=== PATIENT | male | born 1965 | race Caucasian/White ===

== ENCOUNTER 2019-05-03 05:44 | Inpatient (IN) | payer OTHER ==
[2019-05-03] VITALS (24 sets, daily range): BP systolic 114–198; BP diastolic 73–128
[~2019-05-03] VITALS: Ht 185.4 cm; Wt 99.3 kg
--- NOTE | ~2019-05-03 | EKG ---
[place] [address] ELECTROCARDIOGRAM REPORT Name: ALMA ROSA VALDEZ Room: [address] IN [facility].#: [id number] Admission: 05/03/19 Attend Phys: Primitivo Nation MD, F Discharge: Date of : 67 Report #: [id number] THIS REPORT FOR: //name// [facility] Test Date: 2019-05-03 Test Time: 09:47:36 Pat Name: ALMA ROSA VALDEZ Department: Room: Gender: Administrative Services Director: [place] [address] : 1965 Requested By: Toño Cunningham Order Number: [id number] MD: Measurements Intervals [place] Rate: 71 P: 31 GA: 128 QRS: -30 QRSD: 90 T: -40 QT: 401 QTc: 436 Interpretive Statements Sinus rhythm Inferoposterior infarct, recent No previous ECG available for comparison [email or web address] By: 0947 0947 Epiphany Epiphany, /EPI
[2019-05-03] MEDS ORDERED: AMARYL4 MG PO (06:03)
[2019-05-03] MEDS ORDERED: GLUCOPHAGE1000 MG PO (06:03)
[2019-05-03] MEDS ORDERED: ZETIA10 MG PO (06:04)
[2019-05-03 06:12] LABS: ABSOLUTE BASOPHILS 0.1 thou/uL (0.0-0.2); ABSOLUTE EOSINOPHILS 0.4 thou/uL (0.0-0.7); ABSOLUTE LYMPHOCYTES 3.8 thou/uL (0.8-5.3); ABSOLUTE MONOCYTES 0.9 thou/uL (0.0-1.2); ABSOLUTE NEUTROPHILS 3.9 thou/uL (1.6-8.1); BASOPHILS 1.1 %; EOSINOPHILS 4.2 %; HEMOGLOBIN 17.4 gm/dL (14.0-18.0); LYMPHOCYTES 41.9 %; MCH 34.1 pg (26.0-34.0); MCHC 35.4 g/dL (28.0-37.0); MCV 96.2 fL (80.0-100.0); MONOCYTES 9.6 %; MPV 7.6 fl. (7.2-11.1); NUCLEATED RBCS 0 /100WBC; PLATELET COUNT* 251 thou/uL (150-400); POLYS 43.2 %; RDW-CV 13.8 % (10.5-14.5); WBC 9.1 thou/uL (4.0-11.0)
[2019-05-03 06:19] LABS: CALCIUM 8.2 mg/dL (8.5-10.1); POTASSIUM 3.7 mmol/L (3.5-5.1)
[2019-05-03 06:23] LABS: APTT 28.6 Seconds (25.0-31.3); INR 0.9; PROTIME 9.7 Seconds (9.20-11.50)
[2019-05-03 06:31] LABS: CK-MB MASS 4.8 ng/mL (<0.5-3.6); MAGNESIUM 1.6 mg/dL (1.8-2.4); TOTAL BILIRUBIN 0.3 mg/dL (<0.1-1.0); TOTAL PROTEIN 7.1 g/dL (6.4-8.2)
--- NOTE | 2019-05-03 10:53 | CARD ---
[address] [address] CARDIAC CATH REPORT Name: ALMA ROSA VALDEZ Room: [address] IN [facility]#: [id number] Admission: 05/03/19 Attend Phys: Primitivo Nation MD, F Discharge: Date of : 67 Report #: [id number] THIS REPORT FOR: //name// APPROVED REPORT Study performed: 05/03/2019 06:31:26 Patient Details Patient Status: ED Room #: The patient is a 53 year-old male Event Personnel Niyah Pritchard RN Ring Packer, Primitivo Nation Wireline Operator, Tiara Varela RTR Monitor, Roosevelt AshbyIS Scrub, Marcelo Mcqueen RTR Scrub Procedures Performed Art Access - R radial artery Left Heart Cath w/or w/o Coronaries LHC VINAY Place w/wo Plasty Single RCA VINAY Place w/wo Plasty Single CIRC Hemostasis with Hemoband Indication Abnormal ECG, Non-STEMI , Chest pain Risk Factors Dysplipidemia , Diabetes Tobacco History () Admission/Lab Medications/Medications given during procedure Glycoprotein IllbIlla Inhibitors, Heparin Unfract. Procedure Narrative The patient was brought emergently to the Cardiac Catheterization Laboratory and was prepped and draped in a sterile manner. The right wrist was infiltrated with 1% Lidocaine subcutaneous anesthesia. A Slender Glidesheath sheath was inserted into the right radial artery. Coronary angiography was performed using coronary diagnostic catheters. The right coronary system was accessed and visualized with a Diagnostic JR 4 6F catheter. The left coronary system was accessed and visualized with a Diagnostic JL 4 6F catheter. The left ventricle was accessed and visualized with a Diagnostic PIG 6F catheter. Left ventricular/Aortic Valve gradient assessed via catheter pullback. Left ventriculogram was performed in CRANE projection. Closure device was deployed with a 6 Fr Vasc band. The patient tolerated the procedure well and there were [place] [address] CARDIAC CATH REPORT Name: ALMA ROSA VALDEZ Room: [address]#: [id number] Admission: 05/03/19 Attend Phys: Primitivo Nation MD, F Discharge: Date of : 67 Report #: [id number] procedure. There was no hematoma. Intraoperative Conscious Sedation Sedation start time: 07:22 Case end Time: 08:26 Fentanyl 125 mcg Versed 5.0 mg Fluoro Time: 10.8 minutes Dose: DAP 075920 cGycm2 2448 mGy Contrast Type and Amount: Visipaque 225 ml Coronary Angiography The patient's coronary anatomy is co- dominant. Diagnostic Cath Left Main 0% stenosis LAD 30% proximal and 30% mid stenosis Circumflex 100% stenosis with thrombus after the 2nd marginal branch L TIFFANY 70% proximal stenosis noted Right Coronary 50% proximal stenosis, long 80% mid stenosis, and 50% distal stenosis noted RPLV 50% proximal stenosis noted Left Ventriculography The left ventricular ejection fraction is estimated to be 50-55%. Left ventricular wall motion abnormalities are present. There is no mitral insufficiency. mild inferior wall hypokinesis noted Hemodynamics The aortic pressure is 137/85 mmHg with a mean of 105 mmHg. The left ventricular pressure is 138/10 mmHg with a mean of mmHg. The left ventricular end diastolic pressure is 12 mmHg. There was no gradient across the aortic valve upon pullback. Pullback from the left ventricle to the aorta revealed no gradient across the aortic valve. PCI Technique Lesion Anticoagulation was achieved with Heparin. bolus of iv aggrastat given Percutaneous coronary intervention was performed on the mid circumflex artery segment. The lesion stenosis prior to intervention was 100% with JOSE 0 flow. A 6FR XB 3.5 100CM Guide Catheter was used to engage the left ostium. A IG: BMW 190cm Interventional Guidewire was [place] [address] CARDIAC CATH REPORT Name: ALMA ROSA VALDEZ Room: [address] IN [facility]#: [id number] Admission: 05/03/19 Attend Phys: Primitivo Nation MD, F Discharge: Date of : 67 Report #: [id number] BALLOON DILATION A Balloon catheter Trek RX 2.5 X 8 was inserted and inflated up to 8.00atm for 8seconds. Repeat angiography revealed the following post-dilatation results: 60% stenosis. Additional Inflation: 12.00atm for 10seconds. STENT DEPLOYMENT A drug-eluting stent Xience Jocelyn 2.26E58ie was inserted and inflated up to 14.00atm for 15seconds. Repeat angiography revealed the following post-stent deployment results: 0% stenosis. Additional Inflation: 19.00atm for 19seconds. Additional Inflation: 21.00atm for 17seconds. Final angiography reveals 0 % stenosis with JOSE 3 flow. PCI Technique Lesion 2 Percutaneous Coronary Intervention was performed on the mid right coronary artery. Percutaneous coronary intervention was performed on the mid right coronary artery. The lesion stenosis prior to intervention was 80% with JOSE 3 flow. A 6FR JCR 4 100CM Guide Catheter was used to engage the right ostium. A IG: BMW 190cm Interventional Guidewire was used to cross the lesion. Balloon Dilation A Balloon catheter Trek RX 2.5 X 8 was inserted and inflated up to 18.00atm for 11seconds. Repeat angiography revealed the following post-dilatation results: 50% stenosis. Additional Inflation: 20.00atm for 9seconds. Additional Inflation: 20.00atm for 5seconds. Stent Deployment A drug-eluting stent Biotronik Orsiro 4.0 x 40 was inserted and inflated up to 16.00atm for 14seconds. Repeat angiography revealed the following post-stent deployment results: 0% stenosis. Additional Inflation: 20.00atm for 13seconds. Final angiography reveals 0 % stenosis with JOSE 3 flow. Conclusion 1. 100% acute occlusion of the mid circumflex artery 2. 80% long stenosis noted of the mid rca 3. successful placement of 2 drug eluting stents in the mid circumflexa and mid rca 4. LVEF 50-55% Recommendations [address] [address] CARDIAC CATH REPORT Name: ALMA ROSA VALDEZ Room: [address] IN .R.#: [id number] Admission: 05/03/19 Attend Phys: Primitivo Nation MD, F Discharge: Date of : 67 Report #: [id number] Smoking Cessation Cardiac Rehabilitation Referral Medications Administered Clopidogrel <ELECTRONICALLY SIGNED> By: Primitivo Nation MD, FACC 05/03/19 1052 1052 1052Dlakeshia Nation MD, FACC /INF
--- NOTE | 2019-05-03 10:56 | H ---
[address] [address] HISTORY AND PHYSICAL Name: JOSÉ MIGUELALMA ROSA John Room: [address] IN .R.#: [id number] Admission: 05/03/19 Attend Phys: Primitivo Nation MD, F Discharge: Date of : 67 Report #: [id number] THIS REPORT FOR: //name// CC: Fanny Helton Cunningham DATE OF SERVICE: 05/03/2019 HISTORY OF PRESENT ILLNESS: The patient is a 53-year-old single white male who came to the Emergency Room today complaining of chest pain. The patient states he has no previous history of heart disease. He did have a treadmill test in the past that apparently showed no significant coronary artery disease. Recently, however, he has had intermittent burning in his chest. It is not related to exertion or meals. He notes he will vomit and the chest pressure goes away. However, last night, about 3 in the morning, he woke up with a pressure in his chest, went into his left arm. He denied diaphoresis or shortness of breath. He came to the Emergency Room about 3 hours later. He was noted to have an abnormal ECG. I was asked to see him on an emergent basis. At this time, he continues to have the chest pain. He has had no recent fever or blood in stool. Denied any trauma to his chest. He denied any exertional dyspnea, palpitations or syncope. PAST MEDICAL HISTORY: He has had no surgical procedures. He does have a history of diabetes and hypertriglyceridemia. MEDICATIONS: Include metformin, Zetia and Prozac. ALLERGIES: HE HAS AN ALLERGY TO PENICILLIN. FAMILY HISTORY: Negative for heart disease. 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 No alcohol abuse. REVIEW OF SYSTEMS: He has had no history of stroke. He does have a chronic cough. No history of liver disease. He has had a kidney stone. No cancer. No psychiatric illness. No chronic skin condition. PHYSICAL EXAMINATION: GENERAL: Revealed a middle-aged male, appeared in mild distress. VITAL SIGNS: His blood pressure was 170/100, pulse is 80. HEENT: He was anicteric. Conjunctivae are pink. Mucous membranes moist. NECK: Veins are nondistended. Neck supple. CHEST: [place] [address] HISTORY AND PHYSICAL Name: ALMA ROSA VALDEZ Room: [address]#: [id number] Admission: 05/03/19 Attend Phys: Primitivo Nation MD, F Discharge: Date of : 67 Report #: [id number] CARDIOVASCULAR: Regular rate and rhythm. No murmurs. ABDOMEN: Soft. EXTREMITIES: Had no edema. Posterior tibial pulse 2+ bilaterally. SKIN: Cool and dry. NEUROLOGIC: Nonfocal. LYMPH: No adenopathy. MUSCULOSKELETAL: No joint effusion. DIAGNOSTIC DATA: ECG showed a sinus rhythm with ST-segment depression in leads V2 through V4. His chest x-ray showed normal heart size, clear lung barnhart. LABORATORY DATA: Sodium 142, creatinine 1.0, glucose 232. Liver function studies were normal. Troponin was 0.58. Lipid profile is pending. White blood cell count 9.1, hemoglobin 17.4. IMPRESSION AND RECOMMENDATIONS: 1. Acute coronary syndrome. Prolonged chest pain with anterior ST-segment depression noted on ECG, suggest a true posterior myocardial infarction. Recommend urgent cardiac catheterization. 2. Diabetes. 3. Dyslipidemia. The patient is on Zetia. 4. Tobacco abuse. 5. Chronic bronchitis. Total time spent with the patient would be from 7:30 a.m. to 9:00 a.m. <ELECTRONICALLY SIGNED> By: Primitivo Nation MD, FACC 05/03/19 1056 0901 0913Primitivo Nation MD, FACC /nt
[2019-05-03 11:22] LABS: CHOLESTEROL 147 mg/dL (<200); HDL CHOLESTEROL 26 mg/dL (>40); LDL CHOLESTEROL 75 mg/dL (<100); TC:HDL 5.7 Ratio (Not establshd); TRIGLYCERIDE 234 mg/dL (<150); VLDL 47 mg/dL (<40)
[2019-05-03 11:26] LABS: SERUM ASSESSMENT Slight Lipemia
[2019-05-04] VITALS (20 sets, daily range): BP systolic 103–129; BP diastolic 68–89
[2019-05-04 04:45] LABS: HEMATOCRIT 43.8 % (42.0-52.0); MCH 33.6 pg (26.0-34.0); MCHC 34.5 g/dL (28.0-37.0); MCV 97.3 fL (80.0-100.0); MPV 7.8 fl. (7.2-11.1); RBC 4.5 mil/uL (4.50-6.00); RDW-CV 13.7 % (10.5-14.5); WBC 10.5 thou/uL (4.0-11.0)
[2019-05-04 05:03] LABS: HEMOGLOBIN 15.1 gm/dL (14.0-18.0)
[2019-05-04 05:05] LABS: CREATININE 0.9 mg/dL (0.6-1.3); POTASSIUM 4.3 mmol/L (3.5-5.1)
[2019-05-04 05:15] LABS: TROPONIN-I LEVEL 18.07 ng/mL (<0.06)
[2019-05-05] VITALS (20 sets, daily range): BP systolic 82–119; BP diastolic 49–86
[2019-05-05 02:06] LABS: GLYCOHEMOGLOBIN (HGB A1C) 6.5 % (4.8-5.6)
[2019-05-05 04:32] LABS: HEMATOCRIT 41.3 % (42.0-52.0); HEMOGLOBIN 14.6 gm/dL (14.0-18.0); MCHC 35.3 g/dL (28.0-37.0); MCV 96.3 fL (80.0-100.0); MPV 7.8 fl. (7.2-11.1); RBC 4.29 mil/uL (4.50-6.00); RDW-CV 13.2 % (10.5-14.5); WBC 9.8 thou/uL (4.0-11.0)
[2019-05-05 05:07] LABS: ALBUMIN 3.3 g/dL (3.4-5.0); CALCIUM 8.5 mg/dL (8.5-10.1); CREATININE 0.8 mg/dL (0.6-1.3); POTASSIUM 3.9 mmol/L (3.5-5.1); TOTAL BILIRUBIN 0.7 mg/dL (<0.1-1.0)
[2019-05-05 05:13] LABS: TROPONIN-I LEVEL 9.91 ng/mL (<0.06)
--- NOTE | 2019-05-05 10:46 | EKG ---
[place] [address] ELECTROCARDIOGRAM REPORT Name: ALMA ROSA VALDEZ Room: [address] IN [facility].#: [id number] Admission: 05/03/19 Attend Phys: Primitivo Nation MD, F Discharge: Date of : 67 Report #: [id number] THIS REPORT FOR: //name// [facility] ED Test Date: 2019-05-03 Test Time: 05:51:58 Pat Name: ALMA ROSA VALDEZ Department: Room: Gender: Welder Gas Automatic: : 1965 Requested By: Toño Cunningham Order Number: [id number] MD: Slick Lester Measurements Intervals [place] Rate: 87 P: 77 VT: 161 QRS: 0 QRSD: 96 T: 73 QT: 350 QTc: 421 Interpretive Statements Sinus rhythm Posterior infarct, acute (LCx) ST elevation, consider inferior injury Baseline wander in lead(s) II,V1,V2 No previous ECG available for comparison Electronically Signed On 05-05-2019 10:45:58 CINEMA OPERATOR by Slick Lester [email or web address] <ELECTRONICALLY SIGNED> By: Slick Lester MD, FACC 05/05/19 1045 0551 0551 Slick Lester MD, FAC /EPI
--- NOTE | 2019-05-05 10:46 | EKG ---
[place] [address] ELECTROCARDIOGRAM REPORT Name: ALMA ROSA VALDEZ Room: [address] IN [facility].#: [id number] Admission: 05/03/19 Attend Phys: Primitivo Nation MD, F Discharge: Date of : 67 Report #: [id number] THIS REPORT FOR: //name// [facility] ED Test Date: 2019-05-03 Test Time: 05:56:39 Pat Name: ALMA ROSA VALDEZ Department: Room: Gender: Nutrition Services Worker: : 1965 Requested By: Toño Cunningham Order Number: [id number] MD: Slick Lester Measurements Intervals [place] Rate: 81 P: 70 [place]: 147 QRS: 15 QRSD: 86 T: 79 QT: 359 QTc: 417 Interpretive Statements Sinus rhythm Probable left atrial enlargement ST segment depression, consider ischemia No previous ECG available for comparison Electronically Signed On 05-05-2019 10:46:16 EMISSIONS INSPECTOR by Slick Lester [email or web address] <ELECTRONICALLY SIGNED> By: Slick Lester MD, [facility] 05/05/19 1046 0556 0556 Slick Lester MD, FACC /EPI
--- NOTE | 2019-05-05 10:47 | EKG ---
[place] [address] ELECTROCARDIOGRAM REPORT Name: ALMA ROSA VALDEZ Room: [address] ADM IN M.R.#: [id number] Admission: 05/03/19 Attend Phys: Primitivo Nation MD, F Discharge: Date of : 67 Report #: [id number] THIS REPORT FOR: //name// [facility] Test Date: 2019-05-03 Test Time: 09:47:36 Pat Name: ALMA ROSA VALDEZ Department: Room: [address] Gender: Phone Operator: [id number] : 1965 Requested By: Primitivo Nation Order Number: [id number] [place] MD: Slick Lester Measurements Intervals [place] Rate: 71 P: 31 [place]: 128 QRS: -30 QRSD: 90 T: -40 QT: 401 QTc: 436 Interpretive Statements Sinus rhythm Inferoposterior infarct, recent No previous ECG available for comparison Electronically Signed On 05-05-2019 10:46:53 BRUSH HEAD MAKER by Slick Lester [email or web address] <ELECTRONICALLY SIGNED> By: Slick Lester MD, [facility] 05/05/19 1046 D: [id number] 6 Silck Lester MD, FACC /EPI
--- NOTE | 2019-05-05 10:53 | EKG ---
[place] [address] ELECTROCARDIOGRAM REPORT Name: ALMA ROSA VALDEZ Room: [address] ADM IN M.R.#: [id number] Admission: 05/03/19 Attend Phys: Primitivo Nation MD, F Discharge: Date of : 67 Report #: [id number] THIS REPORT FOR: //name// [facility] Test Date: 2019-05-04 Test Time: 06:53:57 Pat Name: ALMA ROSA VALDEZ Department: Room: [address] Gender: M Screening Tech: [facility] : 1965 Requested By: Primitivo Nation Order Number: [id number] [place] MD: Slick Lester Measurements Intervals [place] Rate: 75 P: 48 AL: 124 QRS: -35 QRSD: 90 T: -87 QT: 418 QTc: 467 Interpretive Statements Sinus rhythm Inferior infarct, age indeterminate Lateral leads are also involved Baseline wander in lead(s) V1 No previous ECG available for comparison Electronically Signed On 05-05-2019 10:53:22 PASSENGER ATTENDANT by Slick Lester [email or web address] <ELECTRONICALLY SIGNED> By: Slick Lester MD, [facility] 05/05/19 1053 0653 0653 Slick Lester MD, [facility] /EPI
--- NOTE | 2019-05-05 11:04 | EKG ---
[place] [address] ELECTROCARDIOGRAM REPORT Name: ALMA ROSA VALDEZ Room: [address] ADM IN M.R.#: [id number] Admission: 05/03/19 Attend Phys: Primitivo Nation MD, F Discharge: Date of : 67 Report #: [id number] THIS REPORT FOR: //name// [facility] Test Date: 2019-05-05 Test Time: 07:40:47 Pat Name: ALMA ROSA VALDEZ Department: Room: [address] Gender: M Cattle Tester: RT : 1965 Requested By: Giuseppe Bowen Order Number: [id number] [place] MD: Slick Lester Measurements Intervals [place] Rate: 79 P: 48 ME: 107 QRS: -29 QRSD: 87 T: -84 QT: 397 QTc: 456 Interpretive Statements Sinus rhythm Short ME interval Inferior infarct, age indeterminate No previous ECG available for comparison Electronically Signed On 05-05-2019 11:04:10 TRANSIT SPECIALIST by Slick Lester [email or web address] <ELECTRONICALLY SIGNED> By: Slick Lester MD, [facility] 05/05/19 1104 D: [id number] 9 Slick Lester MD, FACC /EPI
[2019-05-05] MEDS ORDERED: LIPITOR20 MG PO (13:24)
[2019-05-05] MEDS ORDERED: LISINOPRIL2.5 MG PO (13:26)
[2019-05-05] MEDS ORDERED: ASPIR 8181 M1 PO (13:28)
[2019-05-05] MEDS ORDERED: TOPROL XL25 MG PO (13:28)
[2019-05-05] MEDS ORDERED: EFFIENT10 MG PO (13:30)
[2019-05-05] MEDS ORDERED: NITROGLYCERIN0.4 MG SUBLING (13:31)
--- NOTE | 2019-05-05 15:40 | EKG ---
[place] [address] ELECTROCARDIOGRAM REPORT Name: ALMA ROSA VALDEZ Room: [address] IN M.R.#: [id number] Admission: 05/03/19 Attend Phys: Primitivo Nation MD, F Discharge: 05/05/19 Date of : 67 Report #: [id number] THIS REPORT FOR: //name// [facility] Test Date: 2019-05-04 Test Time: 16:56:17 Pat Name: ALMA ROSA VALDEZ Department: Room: [address] Gender: M Middle School Professional: [id number] : 1965 Requested By: Giuseppe Bowen Order Number: [id number] [place] MD: Giuseppe Bowen Measurements Intervals [place] Rate: 73 P: 50 [place]: 124 QRS: -31 QRSD: 100 T: 269 QT: 410 QTc: 452 Interpretive Statements Sinus rhythm Inferior infarct, old Compared to ECG 05/04/2019 06:53:57 No significant changes Electronically Signed On 05-05-2019 15:40:28 INCOME TAX ANALYST by Giuseppe Bowen [email or web address] <ELECTRONICALLY SIGNED> By: Giuseppe Bowen MD, [facility] 05/05/19 1540 1656 1656 Giuseppe Bowen MD, [facility] /EPI
--- NOTE | 2019-05-07 14:08 | CARD ---
[address] [address] CARDIAC CATH REPORT Name: ALMA ROSA VALDEZ Room: [address]#: [id number] Admission: 05/03/19 Attend Phys: Primitivo Nation MD, F Discharge: 05/05/19 Date of : 67 Report #: [id number] THIS REPORT FOR: //name// APPROVED REPORT Study performed: 05/04/2019 13:45:38 Patient Details Patient Status: In-Patient Room #: The patient is a 53 year-old male Event Personnel Giuseppe Bowen Offender Job Retention Specialist, Venus Muhammad RN Human Resources Benefits Administrator, Marcelo Mcqueen RTR Scrub, Roosevelt Ashby EDUCATIONAL PSYCHOLOGIST Monitor, Tiara Varela RTR Monitor Procedures Performed Art Access - R femoral artery ; left heart catheterization with selective coronary arteriography VINAY Place w/wo Plasty Single CIRC VINAY Place w/wo Plasty Single RCA PTCA Single Vessel OM Hemostasis w/ Angioseal Indication Angina post MN Risk Factors Hypercholesterolemia, Tobacco History () Previous Procedures/Diagnoses Previous PCI, Previous MN Admission/Lab Medications/Medications given during procedure Angiomax bolus and infusion Procedure Narrative The patient was brought electively to the Cardiac Catheterization Laboratory and was prepped and draped in a sterile manner. The right femoral was infiltrated with 2% Lidocaine subcutaneous anesthesia. A Ramona 6 Fr sheath was inserted into the right femoral artery. Coronary angiography was performed using coronary diagnostic catheters. The right coronary system was accessed and visualized with a Diagnostic JR 4 6 Fr catheter. The left coronary system was accessed and visualized with a Diagnostic JL 4 6 Fr catheter. The left ventricle was accessed and visualized with a Diagnostic Pig 6 Fr catheter. Left ventricular/Aortic [place] [address] CARDIAC CATH REPORT Name: JOSÉ MIGUELALMA ROSA John Room: [address]#: [id number] Admission: 05/03/19 Attend Phys: Primitivo Nation MD, F Discharge: 05/05/19 Date of : 67 Report #: [id number] catheter pullback. Pre-demployment femoral angiogram was performed . Closure device was deployed with a Fr Angioseal STS 6Fr. The patient tolerated the procedure well and there were no complications associated with the procedure. There was no hematoma. Intraoperative Conscious Sedation Sedation start time: 14:24 Case end Time: 16:08 Fentanyl 75 mcg Versed 3 mg Fluoro Time: 38.6 minutes Dose: DAP [id number] cGycm2 4516 mGy Contrast Type and Amount: Visipaque 400 ml Diagnostic Cath Left Main 0% narrowing LAD 50% mid LAD stenosis Circumflex 50% mid circumflex narrowing with widely patent mid circumflex stent and 90% stenosis distal to a second marginal branch Right Coronary 75% very proximal very proximal right coronary stenosis with local intimal disruption suggested; there is a widely patent proximalmid right coronary stent with 50% tubular distal right coronary narrowing Left Ventriculography Left Ventriculography was not performed. Hemodynamics The aortic pressure is 128/62 mmHg with a mean of 88 mmHg. The left ventricular pressure is 112/7 mmHg with a mean of mmHg. The left ventricular end diastolic pressure is 13 mmHg. PCI Technique Lesion Anticoagulation was achieved with Angiomax Drip. Patient was preloaded with Angiomax IV 15 ml. Percutaneous coronary intervention was performed on the mid circumflex artery segment. The lesion stenosis prior to intervention was 90% with JOSE 3 flow. A 6FR LAUNCHER EBU 4.0 Guide Catheter was used to engage the left ostium. A IG: ProwaterFlex 180CM Interventional Guidewire was used to cross the lesion. BALLOON DILATION A Balloon catheter Trek RX 2.75 X 12 was inserted and inflated up to 14.00atm for 7seconds. [place] [address] CARDIAC CATH REPORT Name: ALMA ROSA VALDEZ Room: [address]#: [id number] Admission: 05/03/19 Attend Phys: Primitivo Nation MD, F Discharge: 05/05/19 Date of : 67 Report #: [id number] STENT DEPLOYMENT A drug-eluting stent Xience Jocelyn 2.17K11wq was inserted and inflated up to 16.00atm for 12seconds. Additional Inflation: 18.00atm for 8seconds. POST STENT DEPLOYMENT BALLOON DILATION A Balloon catheter NC Trek RX 3.0 X 8 was inserted and inflated up to 12.00atm for 8seconds. Additional Inflation: 17.00atm for 9seconds. Additional Inflation: 20.00atm for 8seconds. Trek 2.75 x 8 inserted/inflated for 15 sec @ 10 GALLITO and 17 sec @ 10 GALLITO Final angiography reveals 10 % stenosis with JOSE 3 flow. PCI Technique Lesion 2 Percutaneous Coronary Intervention was performed on the second obtuse marginal branch segment. Patient was preloaded with Angiomax IV 15 ml. The lesion stenosis prior to intervention was 75% with JOSE 3 flow. A 6FR LAUNCHER EBU 4.0 Guide Catheter was used to engage the left ostium. A IG: BMW 190cm Interventional Guidewire was used to cross the lesion. Balloon Dilation A Balloon catheter Trek RX 2.5 X 8 was inserted and inflated up to 12.00atm for 6seconds. Additional Inflation: 14.00atm for 9seconds. Trek RX 2.5 x 8 reinserted/inflated for 7 sec @ 12 GALLITO, 15 sec @ 10 GALLITO, and 18 sec @ 10 GALLITO Final angiography reveals 20 % stenosis with JOSE 3 flow. PCI Technique Lesion 3 Percutaneous Coronary Intervention was performed on the proximal right coronary artery. Patient was preloaded with Angiomax IV 15 ml. The lesion stenosis prior to intervention was 75% with JOSE 3 flow. A 6F JR 4.0 Guide Catheter was used to engage the right ostium. A IG: ProwaterFlex 180CM Interventional Guidewire was used to cross the lesion. Balloon Dilation A Balloon catheter Trek RX 3.5 X 12 was inserted and inflated up to 22.00atm for 13seconds. Additional Inflation: 24.00atm for 10seconds. Stent Deployment A drug-eluting stent Biotronik Orsiro 4.0 x 13 was inserted and inflated up to 10.00atm for 9seconds. Additional Inflation: 12.00atm for 9seconds. Additional Inflation: 12.00atm for 7seconds. [place] [address] CARDIAC CATH REPORT Name: ALMA ROSA VALDEZ Room: [address]#: [id number] Admission: 05/03/19 Attend Phys: Primitivo Nation MD, F Discharge: 05/05/19 Date of : 67 Report #: [id number] Final angiography reveals 0 % stenosis with JOSE 3 flow. Conclusion #1 significant coronary artery disease characterized by the following: A 50% mid LAD narrowing B 50% midcircumflex narrowing with widely patent mid circumflex stent and 90% stenosis of the circumflex distal to the second marginal branch C large dominant right coronary artery with 75% clefted very proximal right coronary stenosis followed by a widely patent stent and 50% tubular distal narrowing of the right coronary artery #3 successful percutaneous coronary intervention with deployment of a drug-eluting stent at site of 90% mid circumflex stenosis with 10% residual narrowing #4 successful percutaneous transluminal coronary angioplasty at the ostium of the second marginal branch with 20% residual narrowing #5 successful percutaneous coronary intervention deployment of drug-eluting stent at the site of 75% clefted very proximal right coronary stenosis with 0% residual narrowing and JOSE-3 flow the distal vessel Recommendations Smoking Cessation Cardiac Risk Reduction Program Aggressive Medical Therapy Medications Administered Aspirin (any) Prasugrel Diagnostic Cath Approved by: Giuseppe Bowen MD Date/Time: 05/07/2019 14:06:26 <ELECTRONICALLY SIGNED> By: Giuseppe Bowen MD, [facility] 05/07/19 1407 1407 1407John Lacey Bowen MD, FACC /INF
--- NOTE | 2019-05-07 15:31 | D ---
[address] [address] DISCHARGE SUMMARY Name: JOSÉ MIGUELALMA ROSA John Room: [address] M.R.#: [id number] Admission: 05/03/19 Attend Phys: Primitivo Nation MD, F Discharge: 05/05/19 Date of : 67 Report #: [id number] THIS REPORT FOR: //name// [facility] DATE OF SERV[facility]: 05/05/2019 FINAL DISCHARGE DIAGNOSES: 1. Acute posterior myocardial infarction. 2. Coronary artery disease. 3. Status post percutaneous coronary intervention of the circumflex, right coronary artery. 4. Diabetes. 5. Hyperlipidemia. 6. Tobacco abuse. PROCEDURES: 05/03/2019 -- left heart catheterization, selective coronary arteriography and percutaneous coronary intervention to the circumflex and right coronary artery in acute setting. 05/04/2019 -- left heart catheterization, selective coronary arteriography and percutaneous coronary intervention to the circumflex beyond the previously deployed stent in the proximal right coronary artery prior to the previously deployed stent. The patient is a very pleasant 53-year-old male who presented with chest pain and true posterior myocardial infarction. He was taken to the catheterization lab emergently and underwent stenting of the mid circumflex and the proximal-mid right coronary artery. He noted some chest discomfort the following day, which was concerning and recatheterization revealed widely patent stents with 90% stenosis just distal to the circumflex stent and an ulcerated stenosis just proximal to the right coronary stent suggesting interval disruption. I deployed one stent distal to the previously deployed circumflex stent dilating the second marginal branch through that stent and stented the proximal right coronary artery with a 4.0 x 13 mm Orsiro stent. There was 0% right coronary narrowings and 10% mid circumflex with 20% second marginal narrowing following final PCI with JOSE 3 flow to all distal circulations. Troponin latasha to peak value of 18.07 and gradually diminished subsequently to that. LABORATORY DATA: On 05/05/2019 revealed sodium 141, potassium 3.9, BUN 13, creatinine 0.8. Hemoglobin 14.6, white blood cell count 9800. Cholesterol 147, triglycerides 234, HDL 26, LDL 75. DISCHARGE MEDICATIONS: The patient was discharged to home on 05/05/2019 on the following medications: Aspirin 81 mg daily, Zetia 10 mg daily, atorvastatin 20 mg daily, glimepiride 4 mg daily, lisinopril 5 mg daily, metformin [address] [place] [address] DISCHARGE SUMMARY Name: ALMA ROSA VALDEZ Room: [address]#: [id number] Admission: 05/03/19 Attend Phys: Primitivo Nation MD, F Discharge: 05/05/19 Date of : 67 Report #: [id number] b.i.d. to be started on 05/06/2019, metoprolol tartrate 12.5 mg b.i.d. and prasugrel 10 mg daily. He is scheduled to see our nurse practitioner in [address] Nation in approximately 6. Therefore, the patient is discharged to home in stable condition on the aforementioned medications with followup as iterated above. <ELECTRONICALLY SIGNED> By: Giuseppe Bowen MD, [facility] 05/07/19 1531 1254 [id number] Bowen MD, FAC /nt
== END 2019-05-05 14:38 | disposition home or self-care (01) | DRG 247 ==
LOC: M.CL 05:44 → M.ERS 05:44 → M.CL 07:19 → M.ICU 08:55
PROVIDERS: Family Medicine; Internal Medicine; ADMIT Internal Medicine Cardiovascular Disease
PROC: B215YZZ Fluoroscopy of Left Heart using Other Contrast (ICD-10-PCS; principal; 2019-05-03)
PROC: 4A023N7 Measurement of Cardiac Sampling and Pressure, Left Heart, Percutaneous Approach (ICD-10-PCS; principal; 2019-05-03)
PROC: 027135Z Dilation of Coronary Artery, Two Arteries with Two Drug-eluting Intraluminal Devices, Percutaneous Approach (ICD-10-PCS; principal; 2019-05-03)
PROC: B211YZZ Fluoroscopy of Multiple Coronary Arteries using Other Contrast (ICD-10-PCS; principal; 2019-05-03)
DX: I21.29 ST elevation (STEMI) myocardial infarction involving other sites (principal); I24.9 Acute ischemic heart disease, unspecified; E11.9 Type 2 diabetes mellitus without complications; I25.110 Atherosclerotic heart disease of native coronary artery with unstable angina pectoris; E78.5 Hyperlipidemia, unspecified; F17.210 Nicotine dependence, cigarettes, uncomplicated; Z79.899 Other long term (current) drug therapy; Z79.84 Long term (current) use of oral hypoglycemic drugs; Z88.0 Allergy status to penicillin; Z71.6 Tobacco abuse counseling

== ENCOUNTER 2019-05-07 02:06 | Emergency (ER) | payer OTHER ==
[~2019-05-07] VITALS: Ht 185.4 cm; Wt 104.3 kg
[~2019-05-07 02:06] MED LIST: AMARYL4 MG PO; ASPIR 8181 M1 PO; EFFIENT10 MG PO; GLUCOPHAGE1000 MG PO; LIPITOR20 MG PO; LISINOPRIL2.5 MG PO; NITROGLYCERIN0.4 MG SUBLING; TOPROL XL25 MG PO; ZETIA10 MG PO
[2019-05-07 02:25] LABS: ABSOLUTE BASOPHILS 0.1 thou/uL (0.0-0.2); ABSOLUTE EOSINOPHILS 0.2 thou/uL (0.0-0.7); ABSOLUTE LYMPHOCYTES 1.8 thou/uL (0.8-5.3); ABSOLUTE NEUTROPHILS 4.8 thou/uL (1.6-8.1); BASOPHILS 1.3 %; EOSINOPHILS 3.1 %; HEMATOCRIT 44.3 % (42.0-52.0); HEMOGLOBIN 15.7 gm/dL (14.0-18.0); LYMPHOCYTES 23.2 %; MCH 34.2 pg (26.0-34.0); MCHC 35.4 g/dL (28.0-37.0); MCV 96.5 fL (80.0-100.0); NUCLEATED RBCS 0 /100WBC; PLATELET COUNT* 227 thou/uL (150-400); POLYS 60.4 %; RBC 4.59 mil/uL (4.50-6.00); RDW-CV 13.5 % (10.5-14.5); WBC 7.9 thou/uL (4.0-11.0)
[2019-05-07 02:30] LABS: CREATININE 1.1 mg/dL (0.6-1.3); POTASSIUM 3.7 mmol/L (3.5-5.1)
[2019-05-07 02:35] LABS: APTT 27.4 Seconds (25.0-31.3); PROTIME 9.9 Seconds (9.20-11.50)
[2019-05-07 02:59] LABS: ALBUMIN 3.9 g/dL (3.4-5.0); TOTAL BILIRUBIN 0.4 mg/dL (<0.1-1.0); TOTAL PROTEIN 7.1 g/dL (6.4-8.2)
[2019-05-07] MEDS ORDERED: CARAFATE 1 GM TA1 GM PO (05:29)
[2019-05-07 05:45] VITALS: BP 103/64
--- NOTE | 2019-05-07 15:58 | EKG ---
[place] [address] ELECTROCARDIOGRAM REPORT Name: VALDEZALMA ROSA MORAN Room: 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 : 1965 Requested By: Kenia Dixon Order Number: [id number] MD: Giuseppe Bowen Measurements Intervals [place] Rate: 85 P: 40 MA: 117 QRS: -30 QRSD: 56 T: QT: 429 QTc: 511 Interpretive Statements Sinus rhythm Borderline short MA interval Left axis deviation Low voltage, precordial leads Abnormal R-wave progression, early transition Prolonged QT interval Compared to ECG 05/05/2019 07:40:47 Left-axis deviation now present Low QRS voltage now present Prolonged QT interval now present Myocardial infarct finding no longer present Electronically Signed On 05-07-2019 15:57:45 SURGICAL FORCEPS FABRICATOR by Giuseppe Bowen [email or web address] <ELECTRONICALLY SIGNED> By: Giuseppe Bowen MD, FACC 05/07/19 1557 0 0 Giuseppe Bowen MD, FAC /EPI
== END 2019-05-07 05:45 | disposition home or self-care (01) ==
LOC: M.ERS 02:06
PROVIDERS: Personal Emergency Response Attendant
DX: I25.10 Atherosclerotic heart disease of native coronary artery without angina pectoris (principal); K21.0 Gastro-esophageal reflux disease with esophagitis; I10 Essential (primary) hypertension; E11.9 Type 2 diabetes mellitus without complications; E78.5 Hyperlipidemia, unspecified; I25.2 Old myocardial infarction; Z88.0 Allergy status to penicillin

== ENCOUNTER → 2020-06-01 | Outpatient (CLI) | payer OTHER ==
[~2020-06-01] MED LIST changes: +CARAFATE 1 GM TA1 GM PO
--- NOTE | 2020-06-02 16:58 | CARDNUC ---
[place] [address] CARDIAC NUCLEAR IMAGING REPORT Name: ALMA ROSA VALDEZ Room: [facility]#: [id number] Admission: 06/01/20 Attend Phys: Genoveva Lim Discharge: Date of : 67 Date of Service: 06/02/20 1658 Report #: [id number] THIS REPORT FOR: cc: Fanny Miller,Fanny Wilson,Slick Baires MD [facility] ~ APPROVED REPORT Imaging Protocol: Rest Tc-99m/Stress Tc-99m 1 day Study performed: 06/01/2020 14:24:41 Indication: HTN, CAD S/P RI/PCI. Patient Location: Out-Patient Stress Tech: Haydee Tavares Stress Nurse: Janiya Perez RN NM Tech:PHILIP Hall Ht: 6 ft 1 in Wt: 238 lbs BSA: 2.32 m2 BMI: 31.39 Medical History Medical History: Angina, CAD s/p RI, CAD s/p stent, COPD, Current Smoker, Diabetic Noninsulin, HTN, Hyperlipidemia, GERD. Medications: ASA 81 MG, ATORVASTATIN, ZETIA, LISINOPRIL, METOPROLOL, NTG, EFFIENT. Allergies: PNC, ADHESIVES. Cardiac Risk Factors: Age, Current Smoker, Diabetes (non-insulin), HTN, Hyperlipidemia, CAD s/p RI/PCI. Previous Cardiac Procedures: Myocardial infarction, PCI. Pretest Chest Pain Characteristics: No chest pain Exercise History: Physically active Physical Disabilities: None Meds Held (24 hrs): METOPROLOL, NTG. Resting Data Rest SPECT myocardial perfusion imaging was performed in supine position 30 minutes following the intravenous injection of 9.8 mCi of Tc-99m Sestamibi. Time of rest injection: 1250 Date: 06/01/2020 The images were gated to evaluate regional wall motion and calculate left ventricular ejection fraction. Administration Route: IV Administration Site: [place] [address] CARDIAC NUCLEAR IMAGING REPORT Name: ALMA ROSA VALDEZ Room: [facility]#: [id number] Admission: 06/01/20 Attend Phys: Genoveva Lim Discharge: Date of : 67 Date of Service: 06/02/20 1658 Report #: [id number] Exercise Stress At peak stress, the patient was injected intravenously with 33.4mCi of Tc-99m Sestamibi. Time of stress injection: 1450 Date: 06/01/2020 Administration Route: IV Administration Site: Right Hand Gated Stress SPECT was performed 30 minutes after stress injection. The images were gated to evaluate regional wall motion and calculate left ventricular ejection fraction. Prone imaging was performed. Stress Test Details Stress Test: Pharmacologic stress was paired with low level exercise. HR Max Heart Rate (APMHR): 167 bpm Resting HR: 68 bpm Target HR (85% APMHR): 141 bpm Max HR Achieved: 152 bpm % of APMHR: 91 Recovery HR: 98 bpm BP Resting BP: 122/75 mmHg Max BP: 180/91 mmHg Recovery BP: 138/82 mmHg ECG Resting ECG: Sinus Rhythm Stress ECG: Sinus Tachycardia ST Change: None Arrhythmia: None Recovery ECG: Sinus Rhythm Recovery ST Change: None Recovery Arrhythmia: None Clinical Reason for Termination: Completed protocol, Maximal effort, Dyspnea, Patient Request. Stress Symptoms: Dyspnea, leg fatigue. Exercise duration: 9 min 37 sec Exercise capacity: 11.16 METs Overall Exercise Capacity for Age: Normal The patient tolerated standard Juan protocol exercise [place] [address] CARDIAC NUCLEAR IMAGING REPORT Name: ALMA ROSA VALDEZ Room: [facility]#: [id number] Admission: 06/01/20 Attend Phys: Genoveva Lim Discharge: Date of : 67 Date of Service: 06/02/20 1658 Report #: [id number] Nurse Comments A 54 year old male presented for a treadmill Nuclear Stress Test r/t CAD s/p RI/PCI, HTN, HLD, DM II. Treadmill tolerated to end of stage 3. Recovery unremarkable. Patient was stable and stated he felt good when escorted to Nuclear Medicine for imaging. Exercise Capacity - Normal. Stress ECG Conclusion The baseline twelve-lead EKG shows sinus rhythm without significant ST segment or T wave abnormality. EKGs obtained during and post exercise show sinus rhythm and sinus tachycardia with no significant ST segment or T wave changes when compared to baseline. There were no stress-induced arrhythmias. Study Quality Study: Good Artifact: Mild Diaphragmatic artifact Study Data At rest, the left ventricular ejection fraction was 64%.. Post stress, the left ventricular ejection was 70%.. TID = 0.90. Perfusion Perfusion images obtained in the supine position at rest and post exercise stress show photopenia of the basal to mid inferior wall that resolves completely with post-rest prone imaging consistent with diaphragmatic attenuation artifact. No other significant fixed or reversible defects are identified. Wall Motion Normal left ventricular wall motion. Nuclear Conclusion ECG Findings: negative for ischemia Clinical Findings: negative for ischemia Nuclear Findings: negative for ischemia Exercise Capacity: normal Left Ventricular Function: normal Risk Study: low Perfusion images show no defect to suggest infarct or ischemia. Left ventricular systolic function appears normal on gated studies. This is a low risk study. <Conclusion> The baseline twelve-lead EKG [place] [address] CARDIAC NUCLEAR IMAGING REPORT Name: ALMA ROSA VALDEZ John Room: [facility]#: [id number] Admission: 06/01/20 Attend Phys: Genoveva Lim Discharge: Date of : 67 Date of Service: 06/02/20 1658 Report #: [id number] segment or T wave abnormality. EKGs obtained during and post exercise show sinus rhythm and sinus tachycardia with no significant ST segment or T wave changes when compared to baseline. There were no stress-induced arrhythmias. <ELECTRONICALLY SIGNED> By: Slick Lester MD, FACC 06/02/201657 57 57 Slick Lester MD, FACC /INF
== END ==
LOC: M.NUC 12-03 12:06
PROVIDERS: ATTEND Internal Medicine
DX: I25.10 Atherosclerotic heart disease of native coronary artery without angina pectoris (principal); E11.9 Type 2 diabetes mellitus without complications; I10 Essential (primary) hypertension; E78.2 Mixed hyperlipidemia; Z72.0 Tobacco use; Z95.5 Presence of coronary angioplasty implant and graft